=== PATIENT | female | born 1995 | race Caucasian/White ===

== ENCOUNTER 2017-06-15 13:06 | Emergency (ER) | payer MEDICAID, OTHER ==
--- NOTE | 2017-06-15 15:19 | UC ---
HPI Wound/Suture Re-check - HPI Summary HPI Summary: Pt presents with request for suture removal. Pt reports having arthroscopic surgery to right knee in [place] and was supposed to have sutures removed two days ago. Pt is here requesting suture removal - History Of Current Complaint Stated Complaint: STITCHES REMOVAL Time Seen by Provider: 06/15/17 15:14 Hx Obtained From: Patient Hx Last Menstrual Period: 03/01/16 Onset/Duration: Sudden Onset, Still Present Severity: Mild - Allergies/Home Medications Allergies/Adverse Reactions: Allergies Allergy/AdvReac Type Severity Reaction Status Date / Time No Known Allergies Allergy Verified 06/15/17 15:18 Home Medications: Home Medications Norethin Acet & Estrad-Fe [Junel Fe 06/07 1-20 mg-Mcg] 1 tab PO QPM 06/15/17 [ History Confirmed 06/15/17] oxyCODONE TAB* [Roxycodone TAB 5 mg*] 5 mg PO ONCE PRN 06/15/17 [History Confirmed 06/15/17] PMH/Surg Hx/FS Hx/Imm Hx Previously Healthy: Yes - Surgical History Surgical History: Yes Surgery Procedure, Year, and Place: ovarian cyst removal - Family History Known Family History: Negative: Seizure Disorder, Blood Disorder - Social History Occupation: Student Lives: With Family Alcohol Use: Weekly Substance Use Type: None Smoking Status (MU): Never Smoked Tobacco Have You Smoked in the Last Year: No - Immunization History Vaccination Up to Date: Yes Review of Systems Constitutional: Negative Skin: Other - sutures intact, right knee ENT: Negative Respiratory: Negative Cardiovascular: Negative Gastrointestinal: Negative Genitourinary: Negative Motor: Negative Neurovascular: Negative Musculoskeletal: Negative Neurological: Negative Psychological: Negative Is Patient Immunocompromised?: No All Other Systems Reviewed And Are Negative: Yes Physical Exam Triage Information Reviewed: Yes Appearance: Well-Appearing Vital Signs Reviewed: Yes Eye Exam: Normal ENT Exam: Normal Dental Exam: Normal Neck exam: Normal Respiratory: Positive: No respiratory distress Musculoskeletal Exam: Other - two sutures intact right anterrior knee, lateral and medial aspect of patella Neurological Exam: Normal Psychological Exam: Normal Skin Exam: Other - sutures intact anterior right knee, no erythema, discharge, tenderness or red streaking Course/Dx - Differential Dx - Laceration/Wound Differential Diagnoses: Cellulitis, Healing Wound, Suture Removal Provider Diagnoses: suture removal, two sutures. healing wound Discharge - Discharge Plan Condition: Stable Disposition: HOME Patient Education Materials: Stitches Removal (ED) Referrals: Non Staff,Doctor [Primary Care Provider] - If Needed Additional Instructions: Please follow up with your PCP or return to clinic as needed.
[2017-06-15 15:29] VITALS: BP 113/74
== END 2017-06-15 15:33 | disposition home or self-care (01) ==
LOC: UCCORT 13:06
DX: S81.001D Unspecified open wound, right knee, subsequent encounter (principal); X58.XXXD Exposure to other specified factors, subsequent encounter
CPT/HCPCS: 99211; G0463